=== PATIENT | female | born 1985 | race Hispanic/Latino ===

== ENCOUNTER 2017-04-10 14:52 | Emergency (ER) | payer BC ==
[2017-04-10 15:01] VITALS: BP 149/89; PULSE 85; RESP 18; TEMP 96.8; O2SAT 97
--- NOTE | 2017-04-10 15:14 | ED PDOC ---
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 Patient reports she was cutting celery when she accidentally cut her thumb. Patient is right hand dominant. No further medical complaints. PMD: None provided. Past Medical History Reviewed: Historical Data, Nursing Documentation, Vital Signs Vital Signs: Last Vital Signs Temp 96.8 F L 04/10/17 14:59 Pulse 85 04/10/17 14:59 Resp 18 04/10/17 14:59 BP 149/89 04/10/17 14:59 Pulse Ox 97 04/10/17 14:59 - Medical History PMH: No Chronic Diseases - Surgical History Surgical History: No Surg Hx - Family History Family History: States: Unknown Family Hx - Allergies Allergies/Adverse Reactions: Allergies Allergy/AdvReac Type Severity Reaction Status Date / Time No Known Allergies Allergy Verified 04/10/17 14:59 Review of Systems ROS Statement: Except As Marked, All Systems Reviewed And Found Negative Musculoskeletal: Positive for: Hand Pain (left thumb laceration) Physical Exam - Reviewed Nursing Documentation Reviewed: Yes Vital Signs Reviewed: Yes - Physical Exam Appears: Positive for: Well, Non-toxic, No Acute Distress Head Exam: Positive for: ATRAUMATIC, NORMAL INSPECTION, NORMOCEPHALIC Skin: Positive for: Normal Color, Warm, Dry Eye Exam: Positive for: Normal appearance Neck: Positive for: Painless ROM Respiratory: Negative for: Respiratory Distress Extremity: Positive for: Normal ROM (Able to extend and flex w/o difficulty), Other (1cm laceration on distal left thumb. ). Negative for: Deformity, Swelling Neurologic/Psych: Positive for: Alert, Oriented - ECG O2 Sat by Pulse Oximetry: 97 (RA) Pulse Ox Interpretation: Normal Medical Decision Making Medical Decision Making: Initial Impression: thumb laceration Initial Plan: --Adacel 0.5 ml IM --reevaluation 15:05 --Dr. Alberts, hand surgeon, at bedside. ~ Scribe Attestation: Documented by Ramon Miner, acting as a scribe for Whit Balderrama PA-C. Provider Scribe Attestation: All medical record entries made by the Scribe were at my direction and personally dictated by me. I have reviewed the chart and agree that the record accurately reflects my personal performance of the history, physical exam, medical decision making, and the department course for this patient. I have also personally directed, reviewed, and agree with the discharge instructions and disposition. Disposition - Clinical Impression Clinical Impression: Thumb laceration - Patient ED Disposition Is Patient to be Admitted: No - Disposition Referrals: Vahe Alberts MD [Medical Doctor] - Disposition: Routine/Home Disposition Time: 15:46 Condition: FAIR Additional Instructions: f/u with hand surgeon in 1 week for removal of sutures Instructions: Finger Laceration (ED) Forms: [facility] (Uzbek)
--- NOTE | 2017-04-13 13:15 | OP ---
PROCEDURE DATE: 04/10/2017 SURGEON: Vahe Alberts MD. PREOPERATIVE DIAGNOSES: 1. Left thumb 1.2 cm skin flap/laceration. 2. Possible left thumb radiodigital nerve laceration. POSTOPERATIVE DIAGNOSES: 1. Left thumb 1.2 cm skin flap/laceration. 2. Possible left thumb radiodigital nerve laceration. PROCEDURE PERFORMED: 1. Exploration of left thumb penetrating wound to evaluate nerve. 2. Complex repair of 1.2 cm left thumb laceration. TYPE OF ANESTHESIA: Regional. 1. Left thumb radial digital nerve block. 2. Left thumb ulnar digital nerve block. INDICATIONS FOR PROCEDURE: Please refer to my separately dictated ER consultation for history and physical. DESCRIPTION OF PROCEDURE: Lidocaine 2% was used in the left thumb radial and ulnar digital nerve block. After allowing sufficient time for the anesthetic to take effect, the wound was thoroughly irrigated with normal saline and dilute Betadine. The area was prepped and draped in usual clean and sterile manner. Tourniquet was placed at the base of her left thumb which was removed at the end of the case. I started the operation by making the incision slightly larger. I did this with a scissor. I explored underneath the nerves. The nerves appeared to be grossly intact. The skin edges where irregular and contused were debrided and undermined to take the tension off the wound and then closed with 4-0 chromic suture in interrupted fashion. Tourniquet was removed. Xeroform dry sterile dressing and a Ramila wrap were placed. The patient tolerated the procedure well and eventually discharged home from the emergency room in stable condition. Postop wound care, limitation of physical activities, the fact there will be a scar, the possibility of further procedures, and need to reevaluate the nerve and the skin in my office were discussed and all questions were answered. Vahe Alberts MD
--- NOTE | 2017-04-13 22:58 | CON ---
DATE: 04/10/2017 HISTORY OF PRESENT ILLNESS: This is a 31-year-old right hand dominant female, who cut her left thumb radial tip with a knife. The patient has some paresthesias to this tip, so there was concern for nerve injury. Thus, the ER staff consulted me and I came in to evaluate and treat the patient. PHYSICAL EXAMINATION: This right-hand dominant female who used the kitchen knife and cut her left index finger radial tip, had a 1.2 cm flap. She has some paresthesias to the distal tip. The ulnar aspect of the finger had normal sensation. She is able to flex and extend the thumb normally indicating intact flexor and extensor tendons. There was good cap refill to the skin tip. The bones were nontender. I explained to the patient she may have lacerated a branch after the trifurcation of the radial digital nerve and the skin was jagged and irregular. I would explore the wound and then tack it down. I told the patient the risks and benefits are possible permanent paresthesias, need for future operations, some skin edge loss, need for secondary healing or further procedure. She understood this and wished to proceed. I will now dictate a separate operative report. Vahe Alberts MD
== END 2017-04-10 15:47 | disposition home or self-care (01) ==
LOC: H.ER 14:52
DX: S61.012A Laceration without foreign body of left thumb without damage to nail, initial encounter (principal); W26.0XXA Contact with knife, initial encounter; Y92.000 Kitchen of unspecified non-institutional (private) residence as the place of occurrence of the external cause